=== PATIENT | female | born 1950 | race Caucasian/White ===

== ENCOUNTER → 2020-11-19 | Outpatient (CLI) | payer MEDICARE, OTHER ==
[2020-11-19 15:03] LABS: ABSOLUTE BASOPHILS 0.1 thou/uL (0.0-0.2); ABSOLUTE EOSINOPHILS 0.3 thou/uL (0.0-0.7); ABSOLUTE LYMPHOCYTES 1.8 thou/uL (0.8-5.3); ABSOLUTE MONOCYTES 0.8 thou/uL (0.0-1.2); ABSOLUTE NEUTROPHILS 4.3 thou/uL (1.6-8.1); BASOPHILS 1.3 %; EOSINOPHILS 4.4 %; HEMOGLOBIN 12.9 gm/dL (12.0-15.0); LYMPHOCYTES 24.7 %; MCH 26.7 pg (26.0-34.0); MCV 80.9 fL (80.0-100.0); MONOCYTES 11.4 %; MPV 7.8 fl. (7.2-11.1); NUCLEATED RBCS 0 /100WBC; PLATELET COUNT* 321 thou/uL (150-400); POLYS 58.2 %; RBC 4.82 mil/uL (4.20-5.00); WBC 7.4 thou/uL (4.0-11.0)
[2020-11-19 15:15] LABS: ALBUMIN 4.1 g/dL (3.4-5.0); CREATININE 0.8 mg/dL (0.6-1.3); DIRECT BILIRUBIN 0.1 mg/dL (<0.1-0.3); POTASSIUM 3.9 mmol/L (3.5-5.1); TOTAL BILIRUBIN 0.2 mg/dL (<0.1-1.0); TOTAL PROTEIN 7.2 g/dL (6.4-8.2)
== END ==
LOC: M.CT 14:45
PROVIDERS: ATTEND Registered Nurse Diabetes Educator
DX: N81.10 Cystocele, unspecified (principal); I70.0 Atherosclerosis of aorta; R19.7 Diarrhea, unspecified; R11.0 Nausea; Z79.899 Other long term (current) drug therapy